=== PATIENT | female | born 1995 | race African-American/Black ===

== ENCOUNTER 2016-10-14 23:12 | Emergency (ER) | payer MEDICAID, OTHER ==
[~2016-10-14] VITALS: Ht 160 cm; Wt 52.0 kg
[2016-10-15 00:30] VITALS: BP 126/82
== END 2016-10-15 00:32 | disposition home or self-care (01) ==
LOC: ER 23:12
DX: O9A.211 Injury, poisoning and certain other consequences of external causes complicating pregnancy, first trimester (principal); T78.1XXA Other adverse food reactions, not elsewhere classified, initial encounter; Z3A.00 Weeks of gestation of pregnancy not specified
CPT/HCPCS: 99283; Z7610

== ENCOUNTER 2018-01-17 10:22 | Emergency (ER) | payer MEDICAID, OTHER ==
[~2018-01-17] VITALS: Ht 152.4 cm; Wt 110.0 kg
[2018-01-17 12:21] VITALS: BP 126/77
[2018-01-17] MEDS ORDERED: ALBUTEROL (0.083%) 2.5MG/3ML NEB HHN ONE (15:00)
== END 2018-01-17 16:56 | disposition home or self-care (01) ==
LOC: ER 10:22
DX: J06.9 Acute upper respiratory infection, unspecified (principal)
CPT/HCPCS: 71045; 94640; 99283

== ENCOUNTER 2018-02-10 09:02 | Emergency (ER) | payer MEDICAID, OTHER ==
[~2018-02-10] VITALS: Ht 152.4 cm; Wt 72.0 kg
[2018-02-10] MEDS ORDERED: IPRATROPIUM BROMIDE (0.02%) 0.5MG/2.5ML NEB HHN STA (11:27)
[2018-02-10] MEDS ORDERED: ALBUTEROL (0.083%) 2.5MG/3ML NEB HHN STA (11:27)
[2018-02-10 13:11] VITALS: BP 111/79
== END 2018-02-10 13:11 | disposition home or self-care (01) ==
LOC: ER 09:02
DX: J06.9 Acute upper respiratory infection, unspecified (principal)
CPT/HCPCS: 81025; 94640; 99283; J7611

== ENCOUNTER 2020-02-20 09:41 | Emergency (ER) | payer MEDICAID, OTHER ==
[~2020-02-20] VITALS: Ht 162.6 cm; Wt 55.0 kg
[2020-02-20 10:19] VITALS: BP 118/70
== END 2020-02-20 11:43 | disposition home or self-care (01) ==
LOC: ER 09:41
DX: F33.0 Major depressive disorder, recurrent, mild (principal); I49.9 Cardiac arrhythmia, unspecified
CPT/HCPCS: 93005; 99283

== ENCOUNTER 2020-05-13 18:47 | Emergency (ER) | payer MEDICARE, OTHER ==
[~2020-05-13] VITALS: Ht 157.5 cm; Wt 56.0 kg
[2020-05-13] MEDS ORDERED: ACETAMINOPHEN 325MG TABLET PO STA (19:33)
[2020-05-13 20:46] VITALS: BP 135/82
== END 2020-05-13 20:48 | disposition home or self-care (01) ==
LOC: ER 18:47
DX: S09.8XXA Other specified injuries of head, initial encounter (principal); Y04.2XXA Assault by strike against or bumped into by another person, initial encounter; Y93.89 Activity, other specified; R03.0 Elevated blood-pressure reading, without diagnosis of hypertension; Y92.488 Other paved roadways as the place of occurrence of the external cause
CPT/HCPCS: 81025; 99284